=== PATIENT | female | born 1990 | race African-American/Black ===

== ENCOUNTER 2021-06-16 19:20 | Emergency (ER) | payer MEDICAID, SELFPAY ==
[2021-06-16] MEDS ORDERED: Metoclopramide HCl 10 MG TAB ONE (21:34)
[2021-06-16] MEDS ORDERED: Acetaminophen 500 MG TAB ONE ×2 (21:35→21:38)
== END 2021-06-16 22:02 | disposition home or self-care (01) ==
LOC: CSHERS 19:20
DX: R53.1 Weakness (principal); R51.9 Headache, unspecified; Z20.822 Contact with and (suspected) exposure to COVID-19
CPT/HCPCS: 99283

== ENCOUNTER 2021-07-20 18:01 | Emergency (ER) | payer BC, MEDICAID, SELFPAY ==
[2021-07-20] MEDS ORDERED: Acetaminophen 500 MG TAB ONE (19:42)
[2021-07-20] MEDS ORDERED: Metoclopramide HCl 10 MG/2 ML VIAL ONE (19:57)
[2021-07-20] MEDS ORDERED: diphenhydrAMINE 50 MG/ML VIAL ONE (19:57)
== END 2021-07-20 20:31 | disposition home or self-care (01) ==
LOC: CSHERS 18:01
DX: R51.9 Headache, unspecified (principal)
CPT/HCPCS: 70450; 96374; 96375; J1200; J2765